=== PATIENT | male | born 1955 | race Hispanic/Latino ===

== ENCOUNTER 2017-09-30 17:54 | Emergency (ER) | payer OTHER ==
[~2017-09-30] VITALS: Ht 172.7 cm; Wt 77.1 kg
[~2017-09-30 17:54] MED LIST: ATORVASTATIN CA10 MG PO; GOOD SENSE IBU200 MG PO; PERCOCET 325 MG1 TA2 PO; TRAMADOL50 MG PO
[2017-09-30 18:41] VITALS: BP 132/78
[2017-09-30] MEDS ORDERED: IBUPROFEN800 M1 PO (19:15)
[2017-09-30] MEDS ORDERED: TAMIFLU75 M1 PO (19:15)
[2017-09-30] MEDS ORDERED: CHERATUSSIN AC118 M1 PO (19:15)
[2017-09-30] MEDS ORDERED: ZOFRAN ODT4 M1 SL (19:15)
[2017-09-30] MEDS ORDERED: PROAIR HFA8.5 GM INH (19:15)
--- NOTE | 2017-09-30 19:16 | ED INFLUENZA/URI COMPLAINT ---
History of Present Illness General Chief Complaint: Upper Respiratory Sx/Fever Stated Complaint: FLU LIKE SYMPTOMS Source: patient Exam Limitations: no limitations Vital Signs & Intake/Output Vital Signs & Intake/Output Vital Signs Date Time Temp Pulse Resp B/P B/P Pulse O2 O2 Flow FiO2 Mean Ox Delivery Rate 09/30 1841 99.2 98 18 132/78 98 Room Air Allergies Coded Allergies: NO KNOWN ALLERGIES (04/09/11) Reconcile Medications Albuterol Sulfate (Proair Hfa) 90 MCG HFA.AER.AD 2 PUF INH Q4-6 PRN PRN SOB Codeine Phosphate/Guaifenesi (Cheratussin AC Syrup) 10 MG-100 MG/5 ML LIQUID 10 ML PO Q6H PRN COUGH Ibuprofen 200 MG TAB 1-2 TAB PO PRN PAIN (Reported) Ibuprofen 800 MG TABLET 1 TAB PO TID PRN PAIN Ondansetron (Zofran Odt) 4 MG TAB.RAPDIS 1 TAB SL TID PRN NAUSEA Oseltamivir Phosphate (Tamiflu) 75 MG CAPSULE 1 CAP PO BID FLU B OXYCODONE HCL/ACETAMINOPHEN (Percocet 5-325 MG Tablet) 325 MG/5 MG TAB 1-2 TAB PO Q4-6 PRN PRN PAIN Triage Note: 62 Y/O MALE TO TRIAGE C/O BODY ACHES, JIMENEZ, AND CHEST CONGESTION SINCE THURSDAY. TEMP 99.2 Triage Nurses Notes Reviewed? yes Onset: Abrupt Duration: day(s): (2), constant, continues in ED, getting worse Timing: single episode today Severity: moderate, severe Severity Numbers: 7 Prior Episodes/Possible Cause: no prior episodes No Modifying Factors: none Associated Symptoms: cough, fever/chills, headache, muscle aches, nasal congestion, nasal drainage, wheezing HPI: 62-year-old male past medical history of hyperlipidemia since her evaluation of fever, cough, congestion, wheezing and body aches. Patient states symptoms started 2 days ago, getting worse. He states the cough is productive of clear sputum and is worse at night causing trouble sleeping. He reports diffuse muscle aches mostly in his back and legs. He does not smoke. No history of underlying lung disease. No nausea vomiting diarrhea. No chest pain or shortness of breath. (Dom Zabala) Past History Travel History Traveled to [place] past 21 day No Medical History Any Pertinent Medical History? see below for history Neurological: NONE EENT: NONE Cardiovascular: hyperlipidemia Respiratory: NONE Gastrointestinal: NONE Hepatic: NONE Renal: HYDROCELE Musculoskeletal: NONE Psychiatric: NONE Endocrine: NONE Surgical History Surgical History: appendectomy Psychosocial History What is your primary language Thai Tobacco Use: Never used Family History Hx Contributory? No (Dom Zabala) Review of Systems Review of Systems Constitutional: Reports: fever, malaise. EENTM: Reports: no symptoms. Respiratory: Reports: see HPI, cough, sputum production, wheezing. Cardiovascular: Reports: no symptoms. GI: Reports: no symptoms. Genitourinary: Reports: no symptoms. Musculoskeletal: Reports: see HPI, back pain, joint pain, muscle pain, muscle stiffness. Skin: Reports: no symptoms. Neurological/Psychological: Reports: no symptoms. Hematologic/Endocrine: Reports: no symptoms. Immunologic/Allergic: Reports: no symptoms. All Other Systems: Reviewed and Negative (Dom Zabala) Physical Exam Physical Exam General Appearance: well developed/nourished, no apparent distress, alert, awake Head: atraumatic, normal appearance Eyes: Bilateral: normal appearance, PERRL, EOMI. Ears, Nose, Throat: normal ENT inspection, moist mucous membrane, hearing grossly normal Neck: normal inspection, supple, full range of motion Respiratory: chest non-tender, no respiratory distress, wheezing Cardiovascular: regular rate/rhythm, normal peripheral pulses Peripheral Pulses: 2+ radial (R), 2+ radial (L) Gastrointestinal: normal bowel sounds, soft, non-tender, no organomegaly Back: normal inspection, normal range of motion, no vertebral tenderness Extremities: normal inspection, normal range of motion, no edema Neurologic/Psych: no motor/sensory deficits, awake, alert, oriented x 3, normal gait, normal mood/affect Skin: intact, normal color, warm/dry Lymphatic: no anterior cervical gerardo Core Measures Sepsis Present: No Sepsis Focused Exam Completed? No (Dom Zabala) Progress Differential Diagnosis: influenza, otitis, pneumonia, pharyngitis, sinusitis Plan of Care: Orders Procedure Date/time Status RAPID VIRAL INFLUENZA A 09/30 1757 Complete Microbiology 09/30 1843 NASOPHARYN: Influenza Virus A & B Rapid Smear - COMP INFLUENZA TYPE B Patient seen and evaluated. He is positive for influenza B. He also has some wheezing auscultated bilaterally. No signs of bacterial infection on exam. Patient will be treated with Tamiflu, pro-air, Cheratussin and Zofran for nausea. Advised him to restaurant plenty of fluids alternate Tylenol and ibuprofen. Follow up with the primary care doctor this week. Discussed return precautions in detail including signs of bacterial infection. Also discussed contact cautions. Patient appears well he agrees the plan. No evidence of hypoxia. Initial ED EKG: none (Dom Zabala) Departure Departure Disposition: HOME OR SELF CARE Condition: Stable Clinical Impression Primary Impression: Influenza B Referrals: Manuel Ricci MD (PCP/Family) Additional Instructions: Rest and drink plenty of fluids. Ibuprofen 800 mg every 8 hours as needed for pain. Cheratussin for cough. Pro-air for chest congestion cough or shortness of breath. Zofran for nausea stiffness. Take Tamiflu as directed for the full course. Monitor symptoms closely follow-up with her primary care doctor this week return sooner with any concerns. Departure Forms: Customer Survey General Discharge Information Prescriptions: Current Visit Scripts Ondansetron (Zofran Odt) 1 TAB SL TID PRN NAUSEA #15 TAB Oseltamivir Phosphate (Tamiflu) 1 CAP PO BID #10 CAP Codeine Phosphate/Guaifenesi (Cheratussin AC Syrup) 10 ML PO Q6H PRN COUGH #240 ML Ibuprofen 1 TAB PO TID PRN PAIN #30 TAB Albuterol Sulfate (Proair Hfa) 2 PUF INH Q4-6 PRN PRN SOB #1 INHAL (Dom Zabala) PA/PROGRAM ENGINEER Co-Sign Statement Statement: ED Attending supervision documentation- [] I saw and evaluated the patient. I have also reviewed all the pertinent lab results and diagnostic results. I agree with the findings and the plan of care as documented in the PA's/PROGRAM ENGINEER's documentation. [X] I have reviewed the ED Record and agree with the PA's/PROGRAM ENGINEER's documentation. [] Additions or exceptions (if any) to the PAs/PROGRAM ENGINEER's note and plan are summarized below: [] (Anamaria SEXTON,Alec Vigil)
== END 2017-09-30 19:33 ==
LOC: ERH 17:54
DX: J10.1 Influenza due to other identified influenza virus with other respiratory manifestations (principal)
CPT/HCPCS: 87804; 87804-59